=== PATIENT | female | born 1960 | race African-American/Black ===

== ENCOUNTER 2019-08-20 04:15 | Emergency (ER) | payer MEDICAID ==
[~2019-08-20] VITALS: Ht 172.7 cm; Wt 54.4 kg
[2019-08-20 04:25] VITALS: BP 132/80
--- NOTE | 2019-08-20 04:25 | NUR ---
ED Nurse Note: Pt is not suicidal or homicidal, no precuations needed at this time.
--- NOTE | 2019-08-20 04:25 | NUR ---
ED Nurse Note: Pt brought into ED by WIL[facility] [place] [facility] she was staying at for c/o not being able to sleep. Pt states she wants benadryl and trazodone to sleep which is what she regularly takes. 911 was called by pt multiple times. She denies any pain or other complaint. NO SOB, fever or cough. Pt is aaox4, ambulatory with steady gait. Pt denies alcohol or drug use today. Pt denies suicidal or homicidal ideations, denies hallucinations.
[2019-08-20] MEDS ORDERED: TraZODone HCl 25 mg tablet ORAL ONE (04:30)
--- NOTE | 2019-08-20 04:30 | NUR ---
ED Nurse Note: Pt provided with multiple warm blankets for comfort.
[2019-08-20] MEDS ORDERED: TRAZODONE HCL100 MG ORAL (04:32)
[2019-08-20] MEDS ORDERED: BENADRYL25 MG ORAL (04:32)
[2019-08-20] MEDS ORDERED: TraZODone 50mg tab ONE (04:32)
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
[2019-08-20] MEDS ORDERED: TraZODone 50mg tab ORAL ONE (04:45)
[2019-08-20 06:00] VITALS: BP 129/85
--- NOTE | 2019-08-20 06:00 | NUR ---
ER DISCHARGE NOTE: Patient is cleared to be discharged per ERMD, pt is aox4, on room air, with stable vital signs. pt was given dc and prescription instructions, pt was able to verbalize understanding, pt id band removed. pt is able to ambulate with steady gait. pt took all belongings. pt provided with list of shelters, refused all other services. Pt refused to state address or plan after DC.
== END 2019-08-20 06:00 | disposition home or self-care (01) ==
LOC: EDBD 04:15 → EMR 04:29
DX: G47.00 Insomnia, unspecified (principal); F91.9 Conduct disorder, unspecified; F10.10 Alcohol abuse, uncomplicated; Z59.0 Homelessness
CPT/HCPCS: 99282